=== PATIENT | female | born 1985 | race Caucasian/White ===

== ENCOUNTER → 2016-11-21 | Outpatient (CLI) | payer OTHER | LOC: COL.RAD 13:42 | DX: Q66.89 Other specified congenital deformities of feet (principal) ==

== ENCOUNTER → 2017-01-16 | Outpatient (REF) | LOC: WSOH 14:45 | DX: Z01.84 Encounter for antibody response examination (principal) ==

== ENCOUNTER → 2017-02-13 | Outpatient (REF) | LOC: WSOH 17:30 | DX: Z02.89 Encounter for other administrative examinations (principal) ==

== ENCOUNTER → 2017-06-17 | Outpatient (REF) | LOC: ZLAB.WCH 18:01 | DX: Z01.89 Encounter for other specified special examinations (principal) ==

== ENCOUNTER → 2017-09-30 | Outpatient (REF) ==
[2017-09-30 18:05] LABS: THYROXINE (T4)-TOTAL 5.9 ug/dL (5.5-11.0)
[2017-09-30 18:18] LABS: THYROID STIMULATING HORMONE 1.31 uIU/mL (0.465-4.680)
== END ==
LOC: ZLAB.WCH 08:47
PROVIDERS: Family Medicine
DX: Z01.89 Encounter for other specified special examinations (principal)

== ENCOUNTER → 2017-10-06 | Outpatient (CLI) | payer OTHER | LOC: COL.RAD 12:56 → EDBD 12:56 | DX: D35.2 Benign neoplasm of pituitary gland (principal); H47.42 Disorders of optic chiasm in (due to) neoplasm | CPT/HCPCS: A9585 ==

== ENCOUNTER → 2018-03-04 | Outpatient (REF) ==
[2018-03-04 16:47] LABS: THYROID STIMULATING HORMONE 1.52 uIU/mL (0.465-4.680)
== END ==
LOC: ZLAB.WCH 15:58
PROVIDERS: Physician Assistant
DX: Z01.89 Encounter for other specified special examinations (principal)

== ENCOUNTER → 2020-05-25 | Outpatient (REF) | LOC: COL.LAB 16:24 | DX: Z20.828 Contact with and (suspected) exposure to other viral communicable diseases (principal) ==

== ENCOUNTER → 2020-07-23 | Outpatient (CLI) | payer OTHER | LOC: COL.RAD 07:47 | DX: Z09 Encounter for follow-up examination after completed treatment for conditions other than malignant neoplasm (principal); Z98.890 Other specified postprocedural states | CPT/HCPCS: A9585 ==